=== PATIENT | female | born 1955 | race Caucasian/White ===

== ENCOUNTER 2016-10-18 20:17 | Inpatient (IN) | payer MEDICARE, MEDICAID ==
[~2016-10-18] VITALS: Ht 172.7 cm; Wt 98.9 kg
--- NOTE | ~2016-10-18 | ECH ---
Transthoracic Echocardiography Report (TTE) Demographics Patient Name NASRIN PHOENIX Date of Study 10/19/2016 Patient Number [id number] Visit Number [id number] Date of 1955 Room Number 422 Accession Number [id number] Gender Female Age 61 year(s) Referring Dirk Olmedo Exotic Dancer Kasey Daly [facility] Physician Physician Interpreting King Jose Loera MD Remote Control Mirror Installer Physician Supervising Ordering Physician Dirk Olmedo MD, MD/P Nurse Stress Bacon Skin Lifter Conclusions Summary Technically fair exam. The estimated left ventricular ejection fraction is 65%. Mild left ventricular hypertrophy. No significant valvular abnormalities. Trivial posterior pericardial effusion. Procedure Type of Study TTE procedure:Echo Complete SF. Procedure Date Date: 10/19/2016 Start: 02:10 PM Technical Quality: Adequate visualization Indications:Bradycardia. Appropriate Use Criteria: 9 Height: 68 inches Weight: 218 pounds BSA: 2.12 m Rhythm: Sinus bradycardia HR: 58 bpm BP: 137/66 mmHg M-Mode/2D Measurements LV Diastolic Dimension: 4.29 cm LV Systolic Dimension: 2.38 cm LV Septum Diastolic: 1.24 cm LV PW Diastolic: 1.19 cm AO Root Dimension: 2.13 cm Cardiac Output: 3.94 l/min LA Dimension: 3.74 cm Cardiac Index: 1.86 l/min*m RV Diastolic Dimension: 2.4 cm LA volume index: 32 ml/m LVOT: 1.75 cm LVOT VTI: 28.24 cm RV Base: 3 cm LV Stroke volume: 67.89 ml RV Mid: 2.1 cm LV Stroke volume index: 32.02 ml/m RV Length: 5.7 cm TAPSE: 2 cm TDI-S': 12 cm/s Doppler Measurements AV Peak Velocity: 1.3 m/s MV Peak E-Wave: 0.94 m/s AV Peak Gradient: 6.76 mmHg MV Peak A-Wave: 0.7 m/s AV Mean Gradient: 3.55 mmHg MV E/A Ratio: 1.34 LVOT Peak Velocity: 1.15 m/s MV P1/2t: 54.1 msec AV Area (Continuity):2.37 cm MV Deceleration Time: 174 msec TR Velocity:2.31 m/s MV Area (PHT): 4.07 cm TR Gradient:21.42 mmHg PV Peak Velocity: 1.01 m/s Estimated RAP:3 mmHg PV Peak Gradient: 4.12 mmHg Estimated RVSP: 24 mmHg Estimated PASP: 24.42 mmHg RA Area: 11.68 cm Findings Left Ventricle The left ventricle is normal in size . Mild left ventricular hypertrophy. Diastolic assessment reveals normal relaxation. Right Ventricle Normal right ventricle structure and function. Left Atrium Normal left atrial size. There is no evidence of patent foramen ovale or atrial septal defect by color Doppler. Right Atrium Normal right atrial size. Mitral Valve Normal mitral valve structure and function. Mild mitral regurgitation by color Doppler. Aortic Valve Normal aortic valve structure and function. Tricuspid Valve Normal tricuspid valve structure and function. Mild tricuspid regurgitation by color Doppler. Pulmonic Valve Normal pulmonic valve structure and function. Trivial pulmonic valve regurgitation by color Doppler. Pericardial Effusion Trivial posterior pericardial effusion. Miscellaneous Visualized portions of the aortic root and ascending aorta appear normal in size. Pleural Effusion No evidence of pleural effusion. Contractility Score LV regional wall motion:(0-Non visualized 1-Normal 2-Hypokinesis 3-Akinesis 4-Dyskinesis 5-Aneurysm) Signature
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
[2016-10-21] MEDS ORDERED: TOPAMAX DPS25 MG PO (14:34)
[2016-10-21] MEDS ORDERED: PEPCID DPS20 MG PO (14:34)
[2016-10-21] MEDS ORDERED: LEVOTHYROXINE112 MCG PO (14:34)
[2016-10-21] MEDS ORDERED: XARELTO20 MG PO (14:34)
[2016-10-21] MEDS ORDERED: CYMBALTA DPS60 MG PO (14:35)
[2016-10-21] MEDS ORDERED: TYLENOL EXTRA500 M1 PO (14:35)
[2016-10-21] MEDS ORDERED: EYE DROPS15 ML OU (14:36)
[2016-10-21] MEDS ORDERED: CENTRUM COMPLE1 EACH PO (14:36)
[2016-10-21] MEDS ORDERED: FLONASE 0.05% D16 GM NS (14:37)
[2016-10-21] MEDS ORDERED: CLARITIN EYE OU (14:37)
[2016-10-21] MEDS ORDERED: AMOXICILLIN500 MG PO (14:38)
--- NOTE | 2016-10-24 06:57 | DS ---
ADMIT: 10/18/2016 RM/LOC: 422 [facility] MR#: [id number] [facility] [address] [place] [id number] PHOENIXNASRIN [address] [facility] [address] [place] [address] General Discharge Summary SEX: F AGE: 61 : 1955 ADMISSION DATE: 10/18/2016 DISCHARGE DATE: 10/20/2016 FINAL DIAGNOSES: 1. Weakness. 2. Mental status changes. 3. Vision changes. 4. Anxiety. 5. Elevated liver test from fatty liver disease. 6. History of traumatic brain injury. REASON FOR ADMISSION: Patient presented with multiple complaints including vision changes and diffuse weakness. She was admitted. Brain MRI looked okay. Psych consult obtained, which revealed just underlying anxiety, but otherwise stable. [place] she was safe to be discharged home. She had elevated liver tests. Abdominal ultrasound showed fatty liver. She had no signs of viral liver disease, so she was set up for discharge to home. Looked like she had a little urinary tract infection, which was strep. She was discharged on amoxicillin 1 g p.o. b.i.d. Her AMA antibody was still pending at the time of discharge. Follow up with me in 1 to 2 weeks. We discussed the low-fat, low carb diet and that she should not drive. DISCHARGE MEDICATIONS: 1. Cymbalta 60 mg daily. 2. Pepcid 20 mg daily. 3. Synthroid 0.112 mg daily. 4. Topamax 25 mg b.i.d. 5. Xarelto 20 mg daily. 6. Flonase 1 spray each nostril b.i.d. 7. Natural tears p.r.n. 8. P.r.n. acetaminophen. 9. Claritin eyedrops. Asher Cavazos MD/ ena JOB #: [id number] CC: Asher Cavazos MD, Attending Physician Asher Cavazos MD, Family Physician
== END 2016-10-20 14:10 | disposition home or self-care (01) | DRG 948 ==
LOC: 4PCU 20:17
PROVIDERS: ADMIT Internal Medicine
DX: R53.1 Weakness (principal); K76.0 Fatty (change of) liver, not elsewhere classified; R00.1 Bradycardia, unspecified; N39.0 Urinary tract infection, site not specified; B95.5 Unspecified streptococcus as the cause of diseases classified elsewhere; M77.32 Calcaneal spur, left foot; G44.329 Chronic post-traumatic headache, not intractable; K21.9 Gastro-esophageal reflux disease without esophagitis; M79.7 Fibromyalgia; M51.36 Other intervertebral disc degeneration, lumbar region; M25.50 Pain in unspecified joint; E03.9 Hypothyroidism, unspecified; M40.209 Unspecified kyphosis, site unspecified; G47.9 Sleep disorder, unspecified; H53.2 Diplopia; R41.82 Altered mental status, unspecified; F41.9 Anxiety disorder, unspecified; F32.9 Major depressive disorder, single episode, unspecified; F99 Mental disorder, not otherwise specified; Z96.659 Presence of unspecified artificial knee joint; Z86.718 Personal history of other venous thrombosis and embolism; Z79.01 Long term (current) use of anticoagulants; Z87.820 Personal history of traumatic brain injury